=== PATIENT | female | born 1975 | race Caucasian/White ===

== ENCOUNTER 2018-10-09 07:06 | Day surgery (SDC) | payer OTHER ==
[2018-10-08 10:51] VITALS: BMI 37.0
--- NOTE | 2018-10-09 08:50 | HP ---
HISTORY OF PRESENT ILLNESS: Ms. Clover Urena is a very pleasant 43-year -old female with a history of chronic acid reflux and history of colon polyp. The patient has had chronic reflux for years. The patient has 2 EGDs in the past. Last one was done in 2012. She has been on Prilosec off and on. For the last several weeks, she has been having symptoms. She complains of heartburn and nausea. She come in for EGD because of the above reason. She also history of colon polyps from before. Risk factors for acid reflux are multiple, which include 1. Obesity. 2. Poor eating habits. 3. Caffeine intake and dietary noncompliance. ALLERGIES: KEFLEX, TRAMADOL, FLAGYL. SOCIAL HISTORY: The patient is a smoker off an on. No alcohol intake. MEDICAL ILLNESSES: 1. Obesity. 2. Hyperlipidemia. 3. Mitral valve prolapse. 4. Chronic acid reflux. 5. Colon polyp. 6. IBS. 7. Anxiety. 8. Allergic rhinitis. PHYSICAL EXAMINATION: GENERAL: The patient is obese. Weight 191 pounds. VITAL SIGNS: Pulse is 72, blood pressure 120/70. HEENT: Conjunctivae clear. CARDIOVASCULAR: First and second heart sounds are normal. LUNGS: Clear to auscultation. ABDOMEN: Soft. No organomegaly. No tenderness. No masses. Bowel sounds are normal. EXTREMITIES: Reveal no edema. ADMITTING DIAGNOSES: 1. Chronic acid reflux. 2. Colon polyp. PLAN: EGD and colonoscopy. Job ID: [id number] [facility]
[2018-10-09] MEDS ORDERED: PROPOFOL 200 MG/20 ML VIAL ONE (11:02)
[2018-10-09] MEDS ORDERED: Lidocaine 1% PF 5 ML VIAL ONE (11:02)
--- NOTE | 2018-10-10 13:32 | OP ---
DATE OF PROCEDURE: 10/09/2018 PROCEDURE PERFORMED: Esophagogastroduodenoscopy with biopsy. PREOPERATIVE DIAGNOSIS: A 43-year-old female with chronic acid reflux with worsening symptoms lately. She also gives history of dysphagia. The patient underwent EGD. POSTOPERATIVE DIAGNOSES: 1. Normal esophageal mucosa. 2. Hiatal hernia. 3. Antral gastritis. DESCRIPTION OF PROCEDURE: The patient was placed on her left lateral position and was given sedation by Anesthesia Department. A Pentax video gastroscope under direct vision passed down the oropharynx past the GE junction into the stomach and subsequently into the descending duodenum. Although the patient complains of worsening acid reflux, on endoscopy, the mucosa appeared completely normal. No esophagitis or any esophageal varices. In the GE junction, no pathology. The patient had a moderate sized hiatal hernia. Retroflexion of scope in the stomach failed to show pathology in the fundus or cardia. The patient's gastric antrum showed erythematous mucosa. Biopsy obtained of the area. In the duodenal bulb, descending duodenum, no pathology. The stomach decompressed and the scope removed. DISCHARGE PLANNING: This is a 43-year-old female, came for EGD and colonoscopy. The EGD showed hiatal hernia and antral gastritis. The colonoscopy showed a sessile polyp of the transverse colon. This was removed easily. DISCHARGE RECOMMENDATIONS: 1. The patient advised to call me if she develops abdominal pain, hematochezia, or fever. 2. In the absence of any other symptoms, she will come back to me in 2 weeks. Job ID: [id number] [facility]
--- NOTE | 2018-10-14 00:19 | OP ---
DATE OF PROCEDURE: 10/09/2018 PROCEDURE PERFORMED: Colonoscopy with polypectomy. PREOPERATIVE DIAGNOSIS: A 43-year-old female with history of colon polyps, underwent colonoscopy. POSTOPERATIVE DIAGNOSES: 1. Sessile transverse colon polyp, status post snare cautery with good hemostasis. 2. Hemorrhoids. DESCRIPTION OF PROCEDURE: The patient was placed on her left lateral position and was given sedation by Anesthesia Department. A rectal exam was done before the scope was advanced into the rectum. No lesions felt on rectal exam. A Pentax video colonoscope was introduced into the rectum and advanced all the way to the cecum. The prep was very good. The mucosa appeared normal throughout the colon. In the appendiceal orifice, ileocecal wall, and cecum, no pathology seen. Withdrawal of scope from the cecum, ascending colon, hepatic flexure, no pathology. There was a sessile polyp over the transverse colon, which was removed with snare cautery with good hemostasis. The remainder of transverse colon, splenic flexure, descending colon, sigmoid colon, no pathology. Rectal hemorrhoids. Job ID: [id number]
== END 2018-10-09 10:25 | disposition home or self-care (01) ==
LOC: SDC 07:06
PROVIDERS: ATTEND Internal Medicine Gastroenterology
PROC: 0DB78ZX Excision of Stomach, Pylorus, Via Natural or Artificial Opening Endoscopic, Diagnostic (ICD-10-PCS; principal; 2018-10-09)
PROC: 0DBL8ZX Excision of Transverse Colon, Via Natural or Artificial Opening Endoscopic, Diagnostic (ICD-10-PCS; principal; 2018-10-09)
DX: D12.3 Benign neoplasm of transverse colon (principal); K31.89 Other diseases of stomach and duodenum; K22.8 Other specified diseases of esophagus; K21.9 Gastro-esophageal reflux disease without esophagitis; K64.9 Unspecified hemorrhoids; K44.9 Diaphragmatic hernia without obstruction or gangrene; F41.9 Anxiety disorder, unspecified; E78.5 Hyperlipidemia, unspecified; K58.9 Irritable bowel syndrome, unspecified; E66.9 Obesity, unspecified; Z68.37 Body mass index [BMI] 37.0-37.9, adult; Z86.010 Personal history of colon polyps; Z91.013 Allergy to seafood; Z88.1 Allergy status to other antibiotic agents; Z79.899 Other long term (current) drug therapy
CPT/HCPCS: 88305; 88312; 88313